=== PATIENT | female | born 1935 | race Two or more races ===

== ENCOUNTER 2019-05-13 09:34 | Emergency (ER) | payer OTHER ==
[~2019-05-13] VITALS: Ht 144.8 cm; Wt 56.7 kg
[2019-05-13] MEDS ORDERED: LEVOXYL112 MCG (09:47)
[2019-05-13] MEDS ORDERED: MICROZIDE12.5 MG (09:48)
[2019-05-13] MEDS ORDERED: ZESTORETIC 20-1 EAC1 (09:48)
[2019-05-13] MEDS ORDERED: NORVASC2.5 M1 (09:48)
[2019-05-13] MEDS ORDERED: GLUMETZA500 MG (09:49)
[2019-05-13] MEDS ORDERED: PROMETH-CODEIN 65 ML PO (17:06)
[2019-05-13] MEDS ORDERED: MOTION SICKNESS25 M1 PO (17:06)
[2019-05-13] MEDS ORDERED: PEPCID AC20 MG PO (17:06)
[2019-05-13] MEDS ORDERED: SYMBICORT 80/10.2 GM IH (17:06)
[2019-05-13] MEDS ORDERED: TESSALON PERLE100 M1 PO (17:06)
== END 2019-05-13 17:30 | disposition home or self-care (01) ==
LOC: ER 09:34
DX: R42 Dizziness and giddiness (principal); K29.70 Gastritis, unspecified, without bleeding; B34.9 Viral infection, unspecified

== ENCOUNTER 2020-11-02 08:29 | Outpatient (CLI) | payer OTHER ==
[~2020-11-02 08:29] MED LIST: GLUMETZA500 MG; LEVOXYL112 MCG; MICROZIDE12.5 MG; MOTION SICKNESS25 M1 PO; NORVASC2.5 M1; PEPCID AC20 MG PO; PROMETH-CODEIN 65 ML PO; SYMBICORT 80/10.2 GM IH; TESSALON PERLE100 M1 PO; ZESTORETIC 20-1 EAC1
== END 2020-11-02 08:34 | disposition home or self-care (01) ==
LOC: SONOGRAMA 08:29
PROVIDERS: ATTEND Pathology Anatomic Pathology & Clinical Pathology
DX: N64.59 Other signs and symptoms in breast (principal); N60.11 Diffuse cystic mastopathy of right breast

== ENCOUNTER 2021-12-15 11:48 | Emergency (ER) | payer OTHER ==
[~2021-12-15] VITALS: Ht 142.2 cm; Wt 59.0 kg
[2021-12-15] MEDS ORDERED: LIPITOR20 MG PO (12:05)
[2021-12-15] MEDS ORDERED: ANASTROZOLE1 MG PO (12:05)
[2021-12-15] MEDS ORDERED: SYNTHROID100 MCG PO (12:06)
== END 2021-12-15 14:52 | disposition home or self-care (01) ==
LOC: ER 11:48
DX: M54.50 Low back pain, unspecified (principal)

== ENCOUNTER 2021-12-17 09:27 | Emergency (ER) | payer OTHER ==
[~2021-12-17] VITALS: Ht 149.9 cm; Wt 59.0 kg
[~2021-12-17 09:27] MED LIST changes: +ANASTROZOLE1 MG PO; +LIPITOR20 MG PO; +SYNTHROID100 MCG PO
== END 2021-12-17 13:50 | disposition home or self-care (01) ==
LOC: ER 09:27
DX: S39.012A Strain of muscle, fascia and tendon of lower back, initial encounter (principal); X58.XXXA Exposure to other specified factors, initial encounter; Y93.89 Activity, other specified; Y92.89 Other specified places as the place of occurrence of the external cause; Z88.0 Allergy status to penicillin; Z88.6 Allergy status to analgesic agent

== ENCOUNTER 2022-11-09 13:26 | Emergency (ER) | payer OTHER ==
[~2022-11-09] VITALS: Ht 152.4 cm; Wt 59.9 kg
== END 2022-11-09 21:17 | disposition home or self-care (01) ==
LOC: ER 13:26
DX: K52.89 Other specified noninfective gastroenteritis and colitis (principal); E86.0 Dehydration; R11.10 Vomiting, unspecified; A08.8 Other specified intestinal infections; I10 Essential (primary) hypertension; E11.9 Type 2 diabetes mellitus without complications; Z79.84 Long term (current) use of oral hypoglycemic drugs; Z20.822 Contact with and (suspected) exposure to COVID-19; Z88.6 Allergy status to analgesic agent; Z88.0 Allergy status to penicillin

== ENCOUNTER 2023-03-16 13:47 | Emergency (ER) | payer OTHER ==
[~2023-03-16] VITALS: Ht 162.6 cm; Wt 61.2 kg
[2023-03-16] MEDS ORDERED: VASOFLEX TABLE1 EACH (14:29)
[2023-03-16] MEDS ORDERED: LASIX20 MG (14:29)
[2023-03-16] MEDS ORDERED: LOSARTAN-HCTZ1 EACH (14:30)
[2023-03-16] MEDS ORDERED: ATORVASTATIN CA20 MG (14:30)
[2023-03-16] MEDS ORDERED: KAPVAY0.1 MG (14:30)
[2023-03-16] MEDS ORDERED: METFORMIN HCL500 MG (14:30)
[2023-03-16] MEDS ORDERED: ANASTROZOLE1 MG (14:31)
[2023-03-16] MEDS ORDERED: VITAMIN D31 ML (14:31)
[2023-03-16] MEDS ORDERED: LEVO-T100 MCG (14:31)
[2023-03-16] MEDS ORDERED: TOPROL XL100 M1 (14:31)
== END 2023-03-16 17:36 | disposition home or self-care (01) ==
LOC: ER 13:47
DX: M54.30 Sciatica, unspecified side (principal); Z88.0 Allergy status to penicillin; Z88.6 Allergy status to analgesic agent

== ENCOUNTER 2023-03-27 09:28 | Emergency (ER) | payer OTHER ==
[~2023-03-27] VITALS: Ht 162.6 cm; Wt 61.2 kg
[~2023-03-27 09:28] MED LIST changes: +ANASTROZOLE1 MG; +ATORVASTATIN CA20 MG; +KAPVAY0.1 MG; +LASIX20 MG; +LEVO-T100 MCG; +LOSARTAN-HCTZ1 EACH; +METFORMIN HCL500 MG; +TOPROL XL100 M1; +VASOFLEX TABLE1 EACH; +VITAMIN D31 ML
[2023-03-27] MEDS ORDERED: DICLOFENAC SODI75 MG PO (10:11)
== END 2023-03-27 11:15 | disposition home or self-care (01) ==
LOC: ER 09:28
DX: M54.50 Low back pain, unspecified (principal); Z88.0 Allergy status to penicillin; Z88.6 Allergy status to analgesic agent; E11.9 Type 2 diabetes mellitus without complications; Z79.84 Long term (current) use of oral hypoglycemic drugs; M54.30 Sciatica, unspecified side
CPT/HCPCS: 96372; 99284; J2360; J3301